=== PATIENT | female | born 1975 | race Caucasian/White ===

== ENCOUNTER 2019-01-16 21:51 | Observation (INO) ==
[2019-01-16] MEDS ORDERED: PIPERACILLIN/TAZOBACTAM 4.5 GM/120 ML BAG IV ONE (22:08)
[2019-01-16] MEDS ORDERED: PIPERACILL/TAZOBAC CONSULT ACTIVE PRN (22:08)
[2019-01-16] MEDS ORDERED: VANCOMYCIN CONSULT ACTIVE PRN (22:08)
[2019-01-16] MEDS ORDERED: VANCOMYCIN HCL 2,000 MG in SODIUM CHLORIDE 0.9% 500 ML IV ONE (22:08)
[2019-01-16] MEDS ORDERED: METOCLOPRAMIDE HCL INJ 5 MG/ML 2 ML VIAL IV STA (22:09)
[2019-01-16] MEDS ORDERED: SODIUM CHLORIDE 0.9% 1000ML 250 ML IV ONE (22:09)
[2019-01-16 22:44] LABS: Basophils # (auto) 0.03 K/uL (0-0.2); Basophils % (auto) 0.3 %; Eosinophils # (auto) 0.11 K/uL (0-0.5); Eosinophils % (auto) 1.3 %; Hematocrit (blood only) 29.8 % (37-47); Immature Granulocytes # (auto) 0.02 K/uL (0.00-0.02); Immature Granulocytes % (auto) 0.2 %; Lymphocytes # (auto) 1.38 K/uL (1.2-3.4); Lymphocytes % (auto) 15.8 %; Mean Corpuscular Hgb Conc 33.6 g/dL (32-36); Mean Corpuscular Volume 91.1 fL (80-100); Mean Platelet Volume 8.1 fL (7.4-10.4); Monocytes # (auto) 0.43 K/uL (0.11-0.59); Monocytes % (auto) 4.9 %; Neutrophils # (auto) 6.76 K/uL (1.4-6.5); Neutrophils % (auto) 77.5 %; Platelet Count 436 K/uL (130-400); RDW Coefficient of Variation 16.6 % (11.5-14.5); Red Blood Count 3.27 M/uL (4.2-5.4); White Blood Count 8.73 K/uL (4.8-10.8)
[2019-01-16 22:46] LABS: Base Excess VBG 2.4 mEq/L; HCO3 VBG 26 mmol/L; Oxygen Saturation VBG 84.5 %; PCO2 VBG 37 mmHg (38-50); PO2 VBG 50 mmHg; pH VBG 7.47 (7.36-7.41)
[2019-01-16 22:55] LABS: INR 2.5 (0.9-1.1); Partial Thromboplastin Time 27.4 Seconds (21.0-31.0); Prothrombin Time 24.1 Seconds (9.0-12.0)
[2019-01-16 23:04] LABS: Alanine Aminotransferase 15 U/L (12-78); Albumin Level 3.4 gm/dl (3.4-5.0); Aspartate Aminotransferase 17 U/L (15-37); BUN Creatinine Ratio 9.9 (10-20); Blood Urea Nitrogen 37 mg/dl (7-18); Calcium 9.9 mg/dl (8.5-10.1); Carbon Dioxide 25 mmol/L (21-32); Chloride 104 mmol/L (98-107); Creatinine Clr Calc Pharmacy 20.5 ml/min; Est GFR (African American) 16.6; Est GFR (Non-African American) 14.3; Glucose 122 mg/dl (70-99); Potassium 3.8 mmol/L (3.5-5.1); Sodium 141 mmol/L (136-145)
[2019-01-16 23:08] LABS: Albumin Globulin Ratio 0.7 (0.9-2); Alkaline Phosphatase 107 U/L (45-117); Bilirubin,Total 0.5 mg/dl (0.2-1); Globulin 4.9 gm/dl (2.5-4.0); Total Protein 8.3 gm/dl (6.4-8.2); Troponin I < 0.015 ng/ml (0-0.045)
[2019-01-16] MEDS ORDERED: FUROSEMIDE 40 MG/4 ML VIAL IV STA (23:41)
[2019-01-16] MEDS ORDERED: METOPROLOL TARTRATE 1 MG/ML VIAL IV STA (23:41)
[2019-01-17 00:09] LABS: Influenza A virus by PCR Neg for Influ A (Neg); Influenza B virus by PCR Neg for Influ B (Neg)
[2019-01-17] MEDS ORDERED: LORazepam 1 MG/2 ML VIAL IV STA (00:52)
[2019-01-17 00:57] LABS: Appearance Urine Clear (Clear); Bacteria Urine Automated Negative (Negative); Bilirubin Urine Negative (Negative); Color Urine Yellow; Epithelial Cell Urine Auto 20-30 /lpf (0-5); Glucose Urine UA Trace (Negative); Ketones Urine Trace (Negative); Leukocyte Esterase Urine Negative (Negative); Nitrite Urine Negative (Negative); Specific Gravity Urine 1.012 (1.000-1.030); Urobilinogen Urine Negative (Negative)
[2019-01-17 01:05] LABS: Protein Urine 1+ (Negative)
[2019-01-17] MEDS ORDERED: AMLODIPINE BESYLATE 5 MG TAB PO SCH (01:25)
--- NOTE | 2019-01-17 01:30 | Emergency Department Note ---
History of Present Illness General Chief complaint: Fever Stated complaint: FEVER, NAUSEA, VOMITING, PORT FAILURE History of Present Illness Maximum Pain Intensity: 3 This 43-year-old presents to the ER complaining of nausea, vomiting, fever Location: Generalized Quality: Nausea Severity: Moderate Duration: Today Timing: Today Context: Patient developed a fever and was sent in from [facility] Modifying factors: better with nothing; worse with nothing Patient is on dialysis for end-stage renal disease. They try to access her PermCath and dialysis was not successful. [facility]. Patient was discharged from [facility] on Wednesday after having fasciotomy to the right lower leg from supposedly plaque buildup in the vein. 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 She had a recent heart attack. Patient states she was noncompliant with her medications that caused her medical problems currently. Patient denies chest pain, dyspnea, abdominal pain, diarrhea, cough, congestion. She still makes urine. No recent antibiotics. She quit smoking 1 month ago. No drug use. Home Medications Home Medications Medication Instructions Recorded Confirmed Type amlodipine 10 mg PO DAILY 01/16/19 01/16/19 History docusate sodium [Colace] 100 mg PO BID 01/16/19 01/17/19 History escitalopram oxalate 20 mg PO DAILY 01/16/19 01/16/19 History insulin aspart U-100 3 unit SUBCUT QDL 01/16/19 01/17/19 History insulin glargine 12 unit SUBCUT HS 01/16/19 01/16/19 History magnesium hydroxide [Milk of 30 ml PO DAILY PRN 01/16/19 01/16/19 History Magnesia] metoprolol tartrate 100 mg PO Q12 01/16/19 01/17/19 History nystatin 1 applic TOPICAL BID 01/16/19 01/16/19 History polyethylene glycol 3350 [Miralax] 17 g PO QDL PRN 01/16/19 01/17/19 History sennosides-docusate sodium 1 tab PO QDL PRN 01/16/19 01/17/19 History [Senokot-S] acetaminophen 650 mg PO Q4 PRN 01/17/19 01/17/19 History atorvastatin 40 mg PO DAILY 01/17/19 01/17/19 History baclofen 5 mg PO TID PRN 01/17/19 01/17/19 History darbepoetin santiago in polysorbat 60 mcg SUBCUT WK 01/17/19 01/17/19 History enoxaparin 30 mg SUBCUT DAILY 01/17/19 01/17/19 History glipizide 5 mg PO BIDM 01/17/19 01/17/19 History insulin aspart U-100 5 unit SUBCUT BIDM 01/17/19 01/17/19 History metformin 500 mg PO BIDM 01/17/19 01/17/19 History ondansetron 4 mg PO Q4 PRN 01/17/19 01/17/19 History oxycodone 5 mg PO Q4 PRN 01/17/19 01/17/19 History oxycodone 10 mg PO Q4 PRN 01/17/19 01/17/19 History pantoprazole 40 mg PO DAILY 01/17/19 01/17/19 History prochlorperazine maleate 5 mg PO TID PRN 01/17/19 01/17/19 History warfarin [Coumadin] 5 mg PO QPM 01/17/19 01/17/19 History Allergies Allergy/AdvReac Type Severity Reaction Status Date / Time lisinopril Allergy Hives Verified 01/17/19 00:21 Past Med/Surg History Medical History Diabetes ESRD (end stage renal disease) High blood pressure Social History Preferred Language: [place] Feels Safe at Home: Yes Smoking Status: Former smoker Review of Systems All systems reviewed & are unremarkable except as noted in HPI & below Physical Exam Vital Signs Vital Signs - 24 hr 01/16/19 21:55 01/16/19 23:33 01/16/19 23:50 Temperature 37.3 C Temperature Source Oral Sepsis Recent Fever Within 48 Hours Yes Sepsis New/Unexplained Change in Mental Status No Sepsis Action Taken by Nursing Physician Notified Pulse Rate 113 H 106 H Pulse Rate [Apical] 107 H Pulse Rhythm Regular Pulse Strength Normal Respiratory Rate 22 18 Respiratory Effort / Characteristics Non-Labored Spontaneous Non-Labored Spontaneous Respiratory Depth Normal Normal Respiratory Pattern Regular Regular Blood Pressure 192/104 H 214/110 H Blood Pressure [Right Arm] 214/110 H Blood Pressure Mean 133 Blood Pressure Mean [Right Arm] 144 Blood Pressure Position Sitting Blood Pressure Position [Right Arm] Lying Pulse Oximetry 95 97 Oxygen Delivery Method Room Air Room Air 01/16/19 23:56 01/17/19 00:30 01/17/19 00:45 Temperature Temperature Source Sepsis Recent Fever Within 48 Hours Sepsis New/Unexplained Change in Mental Status Sepsis Action Taken by Nursing Pulse Rate Pulse Rate [Apical] 96 H 99 H 105 H Pulse Rhythm Pulse Strength Respiratory Rate 18 18 18 Respiratory Effort / Characteristics Non-Labored Spontaneous Non-Labored Spontaneous Non-Labored Spontaneous Respiratory Depth Normal Normal Normal Respiratory Pattern Regular Regular Regular Blood Pressure Blood Pressure [Right Arm] 198/103 H 197/114 H 182/102 H Blood Pressure Mean Blood Pressure Mean [Right Arm] 134 141 128 Blood Pressure Position Blood Pressure Position [Right Arm] Lying Lying Lying Pulse Oximetry 94 94 97 Oxygen Delivery Method Room Air Room Air Room Air 01/17/19 00:46 01/17/19 01:00 Temperature Temperature Source Sepsis Recent Fever Within 48 Hours Sepsis New/Unexplained Change in Mental Status Sepsis Action Taken by Nursing Pulse Rate Pulse Rate [Apical] 111 H 100 H Pulse Rhythm Pulse Strength Respiratory Rate 18 18 Respiratory Effort / Characteristics Non-Labored Spontaneous Non-Labored Spontaneous Respiratory Depth Normal Normal Respiratory Pattern Regular Regular Blood Pressure Blood Pressure [Right Arm] 182/102 H 166/92 H Blood Pressure Mean Blood Pressure Mean [Right Arm] 128 116 Blood Pressure Position Blood Pressure Position [Right Arm] Sitting Sitting Pulse Oximetry 93 93 Oxygen Delivery Method Room Air Room Air VITALS: Vitals are noted on the nurse's note and reviewed by myself. Vital signs hypertensive. GENERAL: Pleasant female vomiting, in no acute distress, nondiaphoretic, well- developed well-nourished. SKIN: Stage I pressure ulcer to the sacrum, the rest of the skin was without rashes, erythema, edema, or bruising. There is no tenting of the skin. Capillary reflex less than 2 seconds. HEAD: Normocephalic atraumatic. EARS: External auditory canals clear, tympanic membranes pearly dueñas without erythema or effusion bilaterally. EYES: Pupils equal round and reactive to light and accommodation. Conjunctivae without injection, sclerae without icterus. Extraocular movements intact. NOSE: Patent, turbinates without inflammation or discharge. No sinus tenderness. MOUTH: Mucous membranes dry. Pharynx without erythema or exudate. Uvula midline. Airway patent. Tongue does not deviate. NECK: Supple without nuchal rigidity. No lymphadenopathy. No thyromegaly. Cervical spine is nontender. No JVD. HEART: Regular rate and rhythm LUNGS: Clear to auscultation bilaterally without wheezes, rales or rhonchi. No retractions or accessory muscle use. ABDOMEN: Positive bowel sounds x 4. Normal tympanic percussion. Soft, minimally tender lower abdomen, without masses or organomegaly. Grossman sign negative. No guarding or rebound tenderness. No CVA tenderness MUSCULOSKELETAL: No muscle atrophy, erythema, or edema noted. Left leg above the knee amputee without signs of infection, right lower leg with wound VAC present without signs of infection. Pedal pulse +2. NEURO: Patient was alert and oriented to person place and time. Normal sensation to light and sharp touch. No focal neurological deficits. Course Administered Medications Discontinued Medications Furosemide (Lasix) 40 mg IV NOW STA Stop: 01/16/19 23:42 Last Admin: 01/16/19 23:55 Dose: 40 mg Documented by: [id number] Piperacillin Sod/Tazobactam Sod (Zosyn) 4.5 gm in 120 mls @ 240 mls/hr IV NOW ONE Stop: 01/16/19 22:37 Last Infusion: 01/16/19 23:21 Dose: 0 mls/hr Documented by: [id number] Admin: 01/16/19 22:51 Dose: 240 mls/hr Documented by: [id number] Vancomycin HCl 2,000 mg/ (Sodium Chloride) 540 mls @ 200 mls/hr IV NOW ONE; Protocol Stop: 01/17/19 00:49 Last Admin: 01/17/19 00:17 Dose: 200 mls/hr Documented by: [id number] Sodium Chloride (Nss 1000ml) 250 mls @ 999 mls/hr IV .Q16M ONE Stop: 01/16/19 22:24 Last Infusion: 01/17/19 00:17 Dose: 0 mls/hr Documented by: [id number] Admin: 01/16/19 23:33 Dose: 999 mls/hr Documented by: [id number] Lorazepam (Ativan) 1 mg in 2 mls @ 2 mls/min IV NOW STA Stop: 01/17/19 00:53 Last Admin: 01/17/19 00:58 Dose: 2 mls/min Documented by: [id number] Metoclopramide HCl (Reglan) 10 mg IV NOW STA Stop: 01/16/19 22:10 Last Admin: 01/16/19 22:51 Dose: 10 mg Documented by: [id number] Metoprolol Tartrate (Lopressor) 5 mg IV NOW STA Stop: 01/16/19 23:42 Last Admin: 01/16/19 23:50 Dose: 5 mg Documented by: [id number] Medical Decision Making Medical Records Attestation: I reviewed the patient's medical records. Home Medications Current Medication List: was personally reviewed by me Laboratory Data Attestation: I reviewed the patient's lab results. Result diagrams: 01/16/19 22:14 01/16/19 22:14 Lab Results 01/16/19 01/16/19 01/16/19 Range/Units 22:14 22:14 22:14 WBC 8.73 (4.8-10.8) K/uL RBC 3.27 L (4.2-5.4) M/uL Hgb 10.0 L (12.0-16.0) g/dL Hct 29.8 L (37-47) % MCV 91.1 (80-100) fL MCH 30.6 (25-34) pg MCHC 33.6 (32-36) g/dL RDW Std Deviation 55.0 H (36.4-46.3) fL RDW Coeff of Lea 16.6 H (11.5-14.5) % Plt Count 436 H (130-400) K/uL MPV 8.1 (7.4-10.4) fL Immature Gran % (Auto) 0.2 % Neut % (Auto) 77.5 % Lymph % (Auto) 15.8 % [place] % (Auto) 4.9 % Eos % (Auto) 1.3 % Baso % (Auto) 0.3 % Immature Gran # (Auto) 0.02 (0.00-0.02) K/uL Neut # (Auto) 6.76 H (1.4-6.5) K/uL Lymph # (Auto) 1.38 (1.2-3.4) K/uL [place] # (Auto) 0.43 (0.11-0.59) K/uL Eos # (Auto) 0.11 (0-0.5) K/uL Baso # (Auto) 0.03 (0-0.2) K/uL PT 24.1 H (9.0-12.0) Seconds INR 2.5 H (0.9-1.1) APTT 27.4 (21.0-31.0) Seconds PTT Ratio 1.0 VBG pH (7.36-7.41) VBG pCO2 (38-50) mmHg VBG pO2 mmHg VBG HCO3 mmol/L VBG O2 Saturation % VBG Base Excess mEq/L Sodium 141 (136-145) mmol/L Potassium 3.8 (3.5-5.1) mmol/L Chloride 104 (98-107) mmol/L Carbon Dioxide 25 (21-32) mmol/L Anion Gap 12.0 H (3-11) BUN 37 H (7-18) mg/dl Creatinine 3.69 H (0.6-1.2) mg/dl Est Cr Clr Drug Dosing 20.5 ml/min Est GFR ( Amer) 16.6 Est GFR (Non-Af Amer) 14.3 BUN/Creatinine Ratio 9.9 L (10-20) Glucose 122 H (70-99) mg/dl POC Glucose (70-99) POC Lactic Acid Diaz (0.90-1.70) mmol/L Calcium 9.9 (8.5-10.1) mg/dl Total Bilirubin 0.5 (0.2-1) mg/dl AST 17 (15-37) U/L ALT 15 (12-78) U/L Alkaline Phosphatase 107 (45-117) U/L Troponin I < 0.015 (0-0.045) ng/ml Total Protein 8.3 H (6.4-8.2) gm/dl Albumin 3.4 (3.4-5.0) gm/dl Globulin 4.9 H (2.5-4.0) gm/dl Albumin/Globulin Ratio 0.7 L (0.9-2) Urine Color Urine Appearance (Clear) Urine pH (4.5-7.5) Ur Specific [place] (1.000-1.030) Urine Protein (Negative) Urine Glucose (UA) (Negative) Urine Ketones (Negative) Urine Blood (Negative) Urine Nitrite (Negative) Urine Bilirubin (Negative) Urine Urobilinogen (Negative) Ur Leukocyte Esterase (Negative) Urine WBC (Auto) (0-5) /hpf Urine RBC (Auto) (0-4) /hpf U Hyaline Cast (Auto) (0-5) /lpf U Epithel Cells (Auto) (0-5) /lpf Urine Bacteria (Auto) (Negative) Influenza Type A (PCR) (Neg) Influenza Type B (PCR) (Neg) 01/16/19 01/16/19 01/16/19 Range/Units 22:14 22:15 22:23 WBC (4.8-10.8) K/uL RBC (4.2-5.4) M/uL Hgb (12.0-16.0) g/dL Hct (37-47) % MCV (80-100) fL MCH (25-34) pg MCHC (32-36) g/dL RDW Std Deviation (36.4-46.3) fL RDW Coeff of Lea (11.5-14.5) % Plt Count (130-400) K/uL MPV (7.4-10.4) fL Immature Gran % (Auto) % Neut % (Auto) % Lymph % (Auto) % [place] % (Auto) % Eos % (Auto) % Baso % (Auto) % Immature Gran # (Auto) (0.00-0.02) K/uL Neut # (Auto) (1.4-6.5) K/uL Lymph # (Auto) (1.2-3.4) K/uL [place] # (Auto) (0.11-0.59) K/uL Eos # (Auto) (0-0.5) K/uL Baso # (Auto) (0-0.2) K/uL PT (9.0-12.0) Seconds INR (0.9-1.1) APTT (21.0-31.0) Seconds PTT Ratio VBG pH (7.36-7.41) VBG pCO2 (38-50) mmHg VBG pO2 mmHg VBG HCO3 mmol/L VBG O2 Saturation % VBG Base Excess mEq/L Sodium (136-145) mmol/L Potassium (3.5-5.1) mmol/L Chloride (98-107) mmol/L Carbon Dioxide (21-32) mmol/L Anion Gap (3-11) BUN (7-18) mg/dl Creatinine (0.6-1.2) mg/dl Est Cr Clr Drug Dosing ml/min Est GFR ( Amer) Est GFR (Non-Af Amer) BUN/Creatinine Ratio (10-20) Glucose (70-99) mg/dl POC Glucose 128 H (70-99) POC Lactic Acid Diaz 1.01 (0.90-1.70) mmol/L Calcium (8.5-10.1) mg/dl Total Bilirubin (0.2-1) mg/dl AST (15-37) U/L ALT (12-78) U/L Alkaline Phosphatase (45-117) U/L Troponin I Cancelled (0-0.045) ng/ml Total Protein (6.4-8.2) gm/dl Albumin (3.4-5.0) gm/dl Globulin (2.5-4.0) gm/dl Albumin/Globulin Ratio (0.9-2) Urine Color Urine Appearance (Clear) Urine pH (4.5-7.5) Ur Specific [place] (1.000-1.030) Urine Protein (Negative) Urine Glucose (UA) (Negative) Urine Ketones (Negative) Urine Blood (Negative) Urine Nitrite (Negative) Urine Bilirubin (Negative) Urine Urobilinogen (Negative) Ur Leukocyte Esterase (Negative) Urine WBC (Auto) (0-5) /hpf Urine RBC (Auto) (0-4) /hpf U Hyaline Cast (Auto) (0-5) /lpf U Epithel Cells (Auto) (0-5) /lpf Urine Bacteria (Auto) (Negative) Influenza Type A (PCR) (Neg) Influenza Type B (PCR) (Neg) 01/16/19 01/16/19 01/17/19 Range/Units 22:32 23:17 00:44 WBC (4.8-10.8) K/uL RBC (4.2-5.4) M/uL Hgb (12.0-16.0) g/dL Hct (37-47) % MCV (80-100) fL MCH (25-34) pg MCHC (32-36) g/dL RDW Std Deviation (36.4-46.3) fL RDW Coeff of Lea (11.5-14.5) % Plt Count (130-400) K/uL MPV (7.4-10.4) fL Immature Gran % (Auto) % Neut % (Auto) % Lymph % (Auto) % [place] % (Auto) % Eos % (Auto) % Baso % (Auto) % Immature Gran # (Auto) (0.00-0.02) K/uL Neut # (Auto) (1.4-6.5) K/uL Lymph # (Auto) (1.2-3.4) K/uL [place] # (Auto) (0.11-0.59) K/uL Eos # (Auto) (0-0.5) K/uL Baso # (Auto) (0-0.2) K/uL PT (9.0-12.0) Seconds INR (0.9-1.1) APTT (21.0-31.0) Seconds PTT Ratio VBG pH 7.47 H (7.36-7.41) VBG pCO2 37 L (38-50) mmHg VBG pO2 50 mmHg VBG HCO3 26 mmol/L VBG O2 Saturation 84.5 % VBG Base Excess 2.4 mEq/L Sodium (136-145) mmol/L Potassium (3.5-5.1) mmol/L Chloride (98-107) mmol/L Carbon Dioxide (21-32) mmol/L Anion Gap (3-11) BUN (7-18) mg/dl Creatinine (0.6-1.2) mg/dl Est Cr Clr Drug Dosing ml/min Est GFR ( Amer) Est GFR (Non-Af Amer) BUN/Creatinine Ratio (10-20) Glucose (70-99) mg/dl POC Glucose (70-99) POC Lactic Acid Diaz (0.90-1.70) mmol/L Calcium (8.5-10.1) mg/dl Total Bilirubin (0.2-1) mg/dl AST (15-37) U/L ALT (12-78) U/L Alkaline Phosphatase (45-117) U/L Troponin I (0-0.045) ng/ml Total Protein (6.4-8.2) gm/dl Albumin (3.4-5.0) gm/dl Globulin (2.5-4.0) gm/dl Albumin/Globulin Ratio (0.9-2) Urine Color Yellow Urine Appearance Clear (Clear) Urine pH 8.0 H (4.5-7.5) Ur Specific [place] 1.012 (1.000-1.030) Urine Protein 1+ H (Negative) Urine Glucose (UA) Trace H (Negative) Urine Ketones Trace H (Negative) Urine Blood Trace H (Negative) Urine Nitrite Negative (Negative) Urine Bilirubin Negative (Negative) Urine Urobilinogen Negative (Negative) Ur Leukocyte Esterase Negative (Negative) Urine WBC (Auto) 1-5 (0-5) /hpf Urine RBC (Auto) 0-4 (0-4) /hpf U Hyaline Cast (Auto) 1-5 (0-5) /lpf U Epithel Cells (Auto) 20-30 H (0-5) /lpf Urine Bacteria (Auto) Negative (Negative) Influenza Type A (PCR) Neg for Influ A (Neg) Influenza Type B (PCR) Neg for Influ B (Neg) Imaging Data Attestation: I personally reviewed and interpreted this imaging study as follows: Blood Pressure Blood Pressure Findings: Elevated blood pressure Blood Pressure Disposition: further management by hospitalist [facility] Narrative Prior records/ancillary studies reviewed. Triage Nursing notes reviewed. Additional history obtained from EMS. The patient's history was concerning for fever. Differential diagnosis: Etiologies such as viral syndrome, otitis, pharyngitis, pneumonia, influenza, meningitis, urinary tract infection, sepsis, bacteremia, as well as others were entertained. Physical examination: As above ER treatment provided: Reglan, Zosyn, vancomycin, Ativan On reassessment the patient felt better. Diagnostics interpreted by me: ECG: Normal sinus, normal intervals, T wave inversions in the anterior leads, no old EKG. Impression sinus rhythm with T wave inversions in the anterior interpreted by myself The labs revealed elevated creatinine. Negative troponin Negative urine. Negative flu. Negative lactic acid. Blood cultures pending Imaging studies: CT ABDOMEN & PELVIS Without Contrast: Impression: Wall thickening versus underdistention of the distal colon which could be seen with colitis in the appropriate clinical scenario. No evidence of acute appendicitis. Cortical defect in the left kidney likely related to prior infection or infarction. Hazy fat stranding about the kidneys. No renal or ureteral calculi. Ill-defined hypodensity in the dome the liver. This could be evaluated with liver MRI as clinically warranted. Opacities in the lower lobes may represent atelectasis. However, infection or aspiration could have a similar appearance. Clinical correlation is recommended. Trace left pleural effusion. Subcutaneous fat stranding of the bilateral flanks. This is nonspecific. Radiologist: King Hodges MD Chest x-ray with no acute consolidation, pneumothorax or free air per my interpretation Consultation: A consultation was placed with Dr. Gómez. The case was discussed and diagnostics were reviewed. The patient was evaluated in the ER for further treatment. This appears to be consistent with fever with hypertensive urgency and intractable vomiting. Medicine was consulted. They will evaluate the patient. Patient is agreeable treatment plan of admission.. Patient was given a few rounds of blood pressure medication and was still elevated. I did try to obtain the records from [place]. They only sent me over an EKG. This was unchanged from her current one. By the evaluation outlined above emergent etiologies such as otitis, pharyngitis, pneumonia, meningitis, urinary tract infection, sepsis, bacteremia, as well as others were deemed relatively unlikely. The pt informed about the findings as listed above. All questions were answered and pleased with the treatment. Case reviewed with my attending The chart was completed utilizing [employer] Speech voice recognition software. Grammatical errors, random word insertions, pronoun errors, and incomplete sentences are an occassional consequence of this system due to software limitations, ambient noise, and hardware issues. Any formal questions or concerns about the content, text, or information contained within the body of this dictation should be directly addressed to the physician video production assistant for clarification. Impression & Plan Hypertensive urgency, Intractable vomiting Discharge Plan Visit Data Chief Complaint: Fever Stated Complaint: FEVER, NAUSEA, VOMITING, PORT FAILURE ED Provider: Nelson Romero ED Midlevel Provider: Keyla Glez Discharge Problem: Hypertensive urgency, Intractable vomiting Patient Disposition: Being Evaluated by Hospitalist Condition: Fair Forms Stand Alone Forms: My [facility] [employer] Prescriptions Prescriptions: No Action amlodipine 10 mg Tablet 10 mg PO DAILY RF: 0 nystatin 100,000 unit/gram Powder 1 applic TOPICAL BID RF: 0 insulin glargine 100 unit/mL Solution 12 unit SUBCUT HS RF: 0 magnesium hydroxide [Milk of Magnesia] 400 mg/5 mL Suspension 30 ml PO DAILY PRN (Reason: Constipation) RF: 0 polyethylene glycol 3350 [Miralax] 17 gram/dose Powder 17 g PO QDL PRN (Reason: Constipation) RF: 0 metoprolol tartrate 100 mg Tablet 100 mg PO Q12 RF: 0 sennosides-docusate sodium [Senokot-S] 8.6-50 mg Tablet 1 tab PO QDL PRN (Reason: Constipation) RF: 0 docusate sodium [Colace] 100 mg Capsule 100 mg PO BID RF: 0 escitalopram oxalate 20 mg Tablet 20 mg PO DAILY RF: 0 insulin aspart U-100 100 unit/mL (3 mL) Insulin Pen 3 unit SUBCUT QDL RF: 0 atorvastatin 40 mg Tablet 40 mg PO DAILY RF: 0 metformin 500 mg Tablet 500 mg PO BIDM RF: 0 prochlorperazine maleate 5 mg Tablet 5 mg PO TID PRN (Reason: Nausea And Vomiting) RF: 0 pantoprazole 40 mg Tablet,Delayed Release (Dr/Ec) 40 mg PO DAILY RF: 0 warfarin [Coumadin] 5 mg Tablet 5 mg PO QPM RF: 0 glipizide 5 mg Tablet 5 mg PO BIDM RF: 0 oxycodone 5 mg Tablet 10 mg PO Q4 PRN (Reason: Pain (Scale Score 7-10)) RF: 0 oxycodone 5 mg Tablet 5 mg PO Q4 PRN (Reason: Pain (Scale Score 4-6)) RF: 0 insulin aspart U-100 100 unit/mL (3 mL) Insulin Pen 5 unit SUBCUT BIDM RF: 0 baclofen 5 mg Tablet 5 mg PO TID PRN (Reason: Muscle Spasm) RF: 0 ondansetron 4 mg Tablet,Disintegrating 4 mg PO Q4 PRN (Reason: Nausea And Vomiting) RF: 0 enoxaparin 30 mg/0.3 mL Syringe 30 mg SUBCUT DAILY RF: 0 acetaminophen 325 mg Tablet 650 mg PO Q4 PRN (Reason: Pain (Scale Score 1-3)) RF: 0 darbepoetin [place] in polysorbat 60 mcg/0.3 mL Syringe 60 mcg subcut WK RF: 0 Referrals Referrals: Fabian Bettencourt MD [Primary Care Provider] -
--- NOTE | 2019-01-17 02:48 | History & Physical Report ---
Date of Service January 17, 2019 Assessment & Plan (1) Hypertensive urgency: ? Secondary to constipation symptoms ? Uremia from failed dialysis attempt yesterday secondary to access issues, ESRD on HD Low-grade fever, patient not septic, no obvious source of infection for now hypercoagulable state (recurrent LE arterial/venous thromboembolism, prothrombin gene mutation) on Coumadin INR therapeutic DM 2 insulin requiring, unknown baseline control anemia, hemoglobin improved from count of 7-8 during from recent confinement past tobacco abuse OBS Medical telemetry Facilitate home BP meds, may need titration Nephrology consult RE dialysis management Cultures, hold off on antibiotics for now until definitive source found Basal insulin, ISS BG goal 1 40-1 80, check hemoglobin A1c DVT prophylaxis. Coumadin INR goal between 2 and 3 Full code Patient's requesting updates from providers. Mr.Jason Zaldivar, contact #[phone]. History of Present Illness All Chief Complaint: Fever, nausea, vomiting Primary Care Provider: Fabian Bettencourt MD History obtained from patient, family, and records. Limited history from patient secondary to lethargy. Medical history significant for hypercoagulable state (recurrent LE arterial/venous thromboembolism, prothrombin gene mutation) on Coumadin, hypertension, DM 2 insulin requiring, past tobacco abuse, ESRD, mood disorder. Patient confined at [facility] from 12/14-01/13/2019 for DKA and ischemic LLE status post AKA after stopping home meds the month prior. Patient also underwent RLE fasciotomy after tibial embolectomy during confinement. Hemodialysis (MWF) initiated during confinement. Patient subsequently discharged to [facility] rehab facility last weekend. Failed dialysis attempt yesterday due to inability to access Permacath as per records. Patient complaining of achy abdominal discomfort, constipation symptoms the last 2 days. Patient subsequently had nausea, emesis. No chest pain, no S OB, no cough. Low-grade fever noted at rehab facility. No issues with leg surgical sites as per . At the ER, SBP noted to be 210s. Patient received IV Lopressor at the ER. Currently SBP 190s. Patient received IV Vancomycin and Zosyn at the ER. 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 Allergies Allergy/AdvReac Type Severity Reaction Status Date / Time lisinopril Allergy Hives Verified 01/17/19 00:21 Home Medications Home Medications Medication Instructions Recorded Confirmed Type amlodipine 10 mg PO DAILY 01/16/19 01/16/19 History docusate sodium [Colace] 100 mg PO BID 01/16/19 01/17/19 History escitalopram oxalate 20 mg PO DAILY 01/16/19 01/16/19 History insulin aspart U-100 3 unit SUBCUT QDL 01/16/19 01/17/19 History insulin glargine 12 unit SUBCUT HS 01/16/19 01/16/19 History magnesium hydroxide [Milk of 30 ml PO DAILY PRN 01/16/19 01/16/19 History Magnesia] metoprolol tartrate 100 mg PO Q12 01/16/19 01/17/19 History nystatin 1 applic TOPICAL BID 01/16/19 01/16/19 History polyethylene glycol 3350 [Miralax] 17 g PO QDL PRN 01/16/19 01/17/19 History sennosides-docusate sodium 1 tab PO QDL PRN 01/16/19 01/17/19 History [Senokot-S] acetaminophen 650 mg PO Q4 PRN 01/17/19 01/17/19 History atorvastatin 40 mg PO DAILY 01/17/19 01/17/19 History baclofen 5 mg PO TID PRN 01/17/19 01/17/19 History darbepoetin [place] in polysorbat 60 mcg SUBCUT WK 01/17/19 01/17/19 History enoxaparin 30 mg SUBCUT DAILY 01/17/19 01/17/19 History glipizide 5 mg PO BIDM 01/17/19 01/17/19 History insulin aspart U-100 5 unit SUBCUT BIDM 01/17/19 01/17/19 History metformin 500 mg PO BIDM 01/17/19 01/17/19 History ondansetron 4 mg PO Q4 PRN 01/17/19 01/17/19 History oxycodone 5 mg PO Q4 PRN 01/17/19 01/17/19 History oxycodone 10 mg PO Q4 PRN 01/17/19 01/17/19 History pantoprazole 40 mg PO DAILY 01/17/19 01/17/19 History prochlorperazine maleate 5 mg PO TID PRN 01/17/19 01/17/19 History warfarin [Coumadin] 5 mg PO QPM 01/17/19 01/17/19 History Past Med/Surg History Medical History Diabetes ESRD (end stage renal disease) High blood pressure Social History Preferred Language: Malay Communication Ability: Effective Beliefs That Will Affect Care: None Current Living Situation: Spouse Other Information That Helps Us Care for You: No Feels Safe at Home: Yes Safety Concerns: Feels Safe At This Time Smoking Status: Former smoker Do You Dip or Chew Tobacco: No Second Hand Exposure: No Tobacco Cessation Education Requested by Patient: No Hx Alcohol Use: No Hx Substance Use: No Review of Systems Review of Systems: Could not be reliably obtained Physical Exam Physical Exam: GENERAL: Lethargic, no respiratory distress SKIN: Pallor, warm HEENT: Bespectacled, pale palpebral conjunctivae, no ptosis, dry buccal mucosa NECK : Supple, short neck, no tenderness CHEST : Decreased breath sounds, no tenderness HEART : RRR, systolic murmur ABDOMEN: Some distention, minimal hypogastric tenderness EXTREMITIES : Dressing over RLE, dressing over left AKA stump NEUROLOGIC : Lethargic, no facial asymmetry, gait and stance not assessed Results & Data Vital Signs (Past 12 Hours) Vital Signs Temp Pulse Pulse Resp BP BP Pulse Ox 01/17/19 02:30 100 H 18 163/98 H 96 01/17/19 02:00 100 H 18 185/98 H 96 01/17/19 01:30 103 H 18 157/94 H 95 01/17/19 01:00 100 H 18 166/92 H 93 01/17/19 00:46 111 H 18 182/102 H 93 01/17/19 00:45 105 H 18 182/102 H 97 01/17/19 00:30 99 H 18 197/114 H 94 01/16/19 23:56 96 H 18 198/103 H 94 01/16/19 23:50 106 H 214/110 H 01/16/19 23:33 107 H 18 214/110 H 97 01/16/19 21:55 37.3 C 113 H 22 192/104 H 95 Diagnostic Findings Laboratory Results WBC 8.73 K/uL (4.8-10.8) 01/16/19 22:14 RBC 3.27 M/uL (4.2-5.4) L 01/16/19 22:14 Hgb 10.0 g/dL (12.0-16.0) L 01/16/19 22:14 Hct 29.8 % (37-47) L 01/16/19 22:14 MCV 91.1 fL (80-100) 01/16/19 22:14 MCH 30.6 pg (25-34) 01/16/19 22:14 MCHC 33.6 g/dL (32-36) 01/16/19 22:14 RDW Std Deviation 55.0 fL (36.4-46.3) H 01/16/19 22:14 RDW Coeff of Lea 16.6 % (11.5-14.5) H 01/16/19 22:14 Plt Count 436 K/uL (130-400) H 01/16/19 22:14 MPV 8.1 fL (7.4-10.4) 01/16/19 22:14 Immature Gran % (Auto) 0.2 % 01/16/19 22:14 Neut % (Auto) 77.5 % 01/16/19 22:14 Lymph % (Auto) 15.8 % 01/16/19 22:14 [place] % (Auto) 4.9 % 01/16/19 22:14 Eos % (Auto) 1.3 % 01/16/19 22:14 Baso % (Auto) 0.3 % 01/16/19 22:14 Immature Gran # (Auto) 0.02 K/uL (0.00-0.02) 01/16/19 22:14 Neut # (Auto) 6.76 K/uL (1.4-6.5) H 01/16/19 22:14 Lymph # (Auto) 1.38 K/uL (1.2-3.4) 01/16/19 22:14 [place] # (Auto) 0.43 K/uL (0.11-0.59) 01/16/19 22:14 Eos # (Auto) 0.11 K/uL (0-0.5) 01/16/19 22:14 Baso # (Auto) 0.03 K/uL (0-0.2) 01/16/19 22:14 PT 24.1 Seconds (9.0-12.0) H 01/16/19 22:14 INR 2.5 (0.9-1.1) H 01/16/19 22:14 APTT 27.4 Seconds (21.0-31.0) 01/16/19 22:14 PTT Ratio 1.0 01/16/19 22:14 VBG pH 7.47 (7.36-7.41) H 01/16/19 22:32 VBG pCO2 37 mmHg (38-50) L 01/16/19 22:32 VBG pO2 50 mmHg 01/16/19 22:32 VBG HCO3 26 mmol/L 01/16/19 22:32 VBG O2 Saturation 84.5 % 01/16/19 22:32 VBG Base Excess 2.4 mEq/L 01/16/19 22:32 Sodium 141 mmol/L (136-145) 01/16/19 22:14 Potassium 3.8 mmol/L (3.5-5.1) 01/16/19 22:14 Chloride 104 mmol/L (98-107) 01/16/19 22:14 Carbon Dioxide 25 mmol/L (21-32) 01/16/19 22:14 Anion Gap 12.0 (3-11) H 01/16/19 22:14 BUN 37 mg/dl (7-18) H 01/16/19 22:14 Creatinine 3.69 mg/dl (0.6-1.2) H 01/16/19 22:14 Est Cr Clr Drug Dosing 20.5 ml/min 01/16/19 22:14 Est GFR ( Amer) 16.6 01/16/19 22:14 Est GFR (Non-Af Amer) 14.3 01/16/19 22:14 BUN/Creatinine Ratio 9.9 (10-20) L 01/16/19 22:14 Glucose 122 mg/dl (70-99) H 01/16/19 22:14 POC Glucose 128 (70-99) H 01/16/19 22:23 POC Lactic Acid Diaz 1.01 mmol/L (0.90-1.70) 01/16/19 22:15 Calcium 9.9 mg/dl (8.5-10.1) 01/16/19 22:14 Magnesium 2.0 mg/dl (1.8-2.4) 01/16/19 22:14 Total Bilirubin 0.5 mg/dl (0.2-1) 01/16/19 22:14 AST 17 U/L (15-37) 01/16/19 22:14 ALT 15 U/L (12-78) 01/16/19 22:14 Alkaline Phosphatase 107 U/L (45-117) 01/16/19 22:14 Troponin I < 0.015 ng/ml (0-0.045) 01/16/19 22:14 Total Protein 8.3 gm/dl (6.4-8.2) H 01/16/19 22:14 Albumin 3.4 gm/dl (3.4-5.0) 01/16/19 22:14 Globulin 4.9 gm/dl (2.5-4.0) H 01/16/19 22:14 Albumin/Globulin Ratio 0.7 (0.9-2) L 01/16/19 22:14 TSH 2.340 uIu/ml (0.300-4.500) 01/16/19 22:14 Urine Color Yellow 01/17/19 00:44 Urine Appearance Clear (Clear) 01/17/19 00:44 Urine pH 8.0 (4.5-7.5) H 01/17/19 00:44 Ur Specific [place] 1.012 (1.000-1.030) 01/17/19 00:44 Urine Protein 1+ (Negative) H 01/17/19 00:44 Urine Glucose (UA) Trace (Negative) H 01/17/19 00:44 Urine Ketones Trace (Negative) H 01/17/19 00:44 Urine Blood Trace (Negative) H 01/17/19 00:44 Urine Nitrite Negative (Negative) 01/17/19 00:44 Urine Bilirubin Negative (Negative) 01/17/19 00:44 Urine Urobilinogen Negative (Negative) 01/17/19 00:44 Ur Leukocyte Esterase Negative (Negative) 01/17/19 00:44 Urine WBC (Auto) 1-5 /hpf (0-5) 01/17/19 00:44 Urine RBC (Auto) 0-4 /hpf (0-4) 01/17/19 00:44 U Hyaline Cast (Auto) 1-5 /lpf (0-5) 01/17/19 00:44 U Epithel Cells (Auto) 20-30 /lpf (0-5) H 01/17/19 00:44 Urine Bacteria (Auto) Negative (Negative) 01/17/19 00:44 Influenza Type A (PCR) Neg for Influ A (Neg) 01/16/19 23:17 Influenza Type B (PCR) Neg for Influ B (Neg) 01/16/19 23:17 CXR as per my interpretation cardiomegaly CT head initial read no acute pathology CT abdomen pelvis initial read: Colonic wall thickening versus underdistention. No appendicitis. Cortical defect left kidney likely related to prior infection/infarction. Ill-defined hypodensity liver dome. Atelectasis. Trace left pleural effusion. Subcutaneous fat stranding bilateral flanks. EKG as per my interpretation: Rate 105, sinus tachycardia, normal axis, T wave inversion lateral leads
[2019-01-17] MEDS ORDERED: OXYCODONE HCL IR 5 MG TAB (IMMEDIATE RELEASE) PO PRN (04:03)
[2019-01-17] MEDS ORDERED: GLUCOSE 10 TABS/TUBE PO PRN (04:03)
[2019-01-17] MEDS ORDERED: GLUCOSE 40% GEL 15 GM TUBE PO PRN (04:03)
[2019-01-17] MEDS ORDERED: GLUCAGON FOR INJ 1 MG VIAL SQ PRN (04:03)
[2019-01-17] MEDS ORDERED: NITROGLYCERIN SL 0.4 MG/TAB TAB SL PRN (04:03)
[2019-01-17] MEDS ORDERED: CARBOHYDRATES FOR HYPOGLYCEMIA PO PRN (04:03)
[2019-01-17] MEDS ORDERED: POLYETHYLENE (MIRALAX) 17 GM PACK PO PRN (04:03)
[2019-01-17] MEDS ORDERED: DEXTROSE 50% 50 ML SYRINGE IV PRN (04:03)
[2019-01-17] MEDS ORDERED: LACTULOSE SYRUP 30 GM/45 ML UDP PO STA (04:03)
[2019-01-17] MEDS ORDERED: ACETAMINOPHEN 325 MG TAB PO PRN ×2 (04:03)
[2019-01-17] MEDS: PROMETHAZINE HCL 12.5 MG in SODIUM CHLORIDE 0.9% 50 ML IV PRN ×2 (04:12→10:54)
[2019-01-17] MEDS: METOPROLOL SUCC 50MG EXT REL TAB PO SCH ×2 (05:26→20:58)
[2019-01-17] MEDS: DOCUSATE SODIUM/SENNA 50/8.6MG TAB PO SCH ×2 (05:26→20:52)
[2019-01-17] MEDS: INSULIN ASPART 100 UNITS/ML 3 ML PEN SC SCH ×5 (05:27→20:53)
[2019-01-17 06:18] LABS: Basophils # (auto) 0.04 K/uL (0-0.2); Basophils % (auto) 0.5 %; Eosinophils # (auto) 0.01 K/uL (0-0.5); Eosinophils % (auto) 0.1 %; Hemoglobin 10.5 g/dL (12.0-16.0); Immature Granulocytes # (auto) 0.01 K/uL (0.00-0.02); Immature Granulocytes % (auto) 0.1 %; Lymphocytes # (auto) 1.04 K/uL (1.2-3.4); Lymphocytes % (auto) 12.1 %; Mean Corpuscular Hgb Conc 33.9 g/dL (32-36); Mean Corpuscular Volume 90.6 fL (80-100); Mean Platelet Volume 7.8 fL (7.4-10.4); Monocytes # (auto) 0.48 K/uL (0.11-0.59); Monocytes % (auto) 5.6 %; Neutrophils # (auto) 7.02 K/uL (1.4-6.5); Neutrophils % (auto) 81.6 %; Platelet Count 397 K/uL (130-400); RDW Coefficient of Variation 16.4 % (11.5-14.5); RDW Standard Deviation 54.8 fL (36.4-46.3); Red Blood Count 3.42 M/uL (4.2-5.4)
--- NOTE | 2019-01-17 06:26 | XRay Report ---
XR chest 1V portable CLINICAL HISTORY: Sepsis COMPARISON STUDY: No previous studies for comparison. FINDINGS: A dual right internal jugular catheter is in place. There is no pneumothorax or pleural eff usion. Lung volumes are mildly diminished. There is no consolidation or evidence for pulmonary edema. Mild enlargement of the cardiac silhouette is noted. IMPRESSION: 1. No acute cardiopulmonary findings. 2. Moderate enlargement of the cardiac silhouette. Electronically signed by: Jorge Bee M.D. 01/17/2019 6:25 AM
[2019-01-17 06:29] LABS: Estimated Average Glucose 128 mg/dl
[2019-01-17 06:29] LABS: INR 2.5 (0.9-1.1); Prothrombin Time 24.3 Seconds (9.0-12.0)
--- NOTE | 2019-01-17 06:31 | CT Scan Report ---
CT OF THE HEAD WITHOUT CONTRAST CLINICAL HISTORY: Dizziness, nausea and vomiting. COMPARISON STUDY: No previous studies for comparison. CT DOSE: 537.48 mGy.cm TECHNIQUE: Helical axial images of the head were obtained without IV contrast. Automated exposure con trol was utilized for the study. A dose lowering technique was utilized adhering to the principles o f ALARA. FINDINGS: No acute intracranial hemorrhage, midline shift or mass effect is present. Ventricular syst em is normal. Basilar cisterns are patent. There are no extra-axial collections. Rojas-white different iation is maintained. There are no findings to suggest acute dural sinus thrombosis or acute territor ial infarct. There is a possible 6 mm old lacunar infarct within the right internal capsule. There ar e no significant calvarial abnormalities. Trace fluid within the bilateral mastoid air cells are note d. Bilateral sphenoid sinus air-fluid levels are noted. IMPRESSION: 1. No acute intracranial findings. 2. Sphenoid sinus air-fluid levels. 3. Minimal fluid within the bilateral mastoid air cells. Electronically signed by: Jorge Bee M.D. 01/17/2019 6:30 AM
[2019-01-17] MEDS ORDERED: METOCLOPRAMIDE HCL INJ 5 MG/ML 2 ML VIAL IV PRN (06:33)
[2019-01-17 06:45] LABS: Pregnancy Test, Serum Negative (Negative)
[2019-01-17 06:57] LABS: BUN Creatinine Ratio 10.1 (10-20); Calcium 9.8 mg/dl (8.5-10.1); Creatinine Clr Calc Pharmacy 19.6 ml/min; Est GFR (African American) 16.4; Est GFR (Non-African American) 14.1; Potassium 3.6 mmol/L (3.5-5.1)
--- NOTE | 2019-01-17 07:22 | CT Scan Report ---
ABDOMEN AND PELVIS CT WITHOUT CONTRAST CT DOSE: 844.31 mGy.cm HISTORY: ESRD, mid abd pain, fever/vomiting TECHNIQUE: Multiaxial CT images of the abdomen and pelvis were performed without contrast. A dose lo wering technique was utilized adhering to the principles of ALARA. COMPARISON STUDY: None. FINDINGS: Peripheral groundglass densities within the lung bases posteriorly, left greater the right. Trace left pleural effusion. There is a catheter terminating in the right atrium which is partially visualized. No suspicious lytic or blastic osseous lesions. Bilateral flank and hip subcutaneous keshia a, left greater than right. Linear hypodensity within the right hepatic dome. This is incompletely ch aracterize on this noncontrast study but may represent scarring rather than a liver lesion. The unenh anced spleen, adrenal glands, pancreas, and gallbladder are unremarkable. There is mild bilateral per inephric fat stranding/edema. Focal cortical scarring seen at the kidneys. No renal or ureteral calcu li. No hydronephrosis. Normal bladder. The uterus and bilateral adnexa are unremarkable. Suboptimal e valuation for bowel pathology due to the lack of intravenous and oral contrast. There are few colonic diverticula. No evidence for diverticulitis. Normal appendix. IMPRESSION: 1. No definite bowel wall thickening or obstruction. 2. Normal appendix. 3. Bilateral flank subcutaneous edema. 4. Mild bilateral perinephric edema. This could be chronic. Recommend correlation with urinalysis to exclude an infectious process. 5. Nonspecific hypodensity within the right hepatic dome which may represent scarring. Follow-up live r MRI can be performed for further evaluation if clinically warranted to exclude a hepatic lesion. 6. Trace left pleural effusion. 7. Bibasilar groundglass densities may represent atelectasis or pneumonia. Electronically signed by: Gavino Nassar M.D. 01/17/2019 7:21 AM
--- NOTE | 2019-01-17 08:33 | Nephrology Consultation ---
Date of Consultation January 17, 2019 Assessment & Plan (1) Dialysis catheter clot or failure: -we do not have provider here who can exchange tunnelled dialysis catheter. needs to go to [facility] for this - after d/w Dr Hood, pt for transfer d/t this and other medical issues; provided no active infection currently, TDC exchange ok; do note that blood cxs are in process however no leukocytosis, no F Present on Admission?: Yes (2) Acute renal failure on dialysis: potassium, volume, acid base status all ok >> does not need emergent dialysis but likely to need next 24 -72 hrs -monitor for renal recovery/ avoid nephrotoxins and IV contrast unless lifesaving > note she is NOT ESRD at least not so far Present on Admission?: Yes (3) Hypertensive urgency: did not have amlodipine today and will have this given; continue current metoprolol, amlodipine doses -goal SBP next 1-2 days is 150s -will write for prn hydralazine as well -note that lisinopril in chart from [facility] and [facility] both report angioedema from lisinopril >> our allergies so updated Present on Admission?: Yes (4) Hypercoagulation syndrome: just had BLE arterial thromboses> needs lifelong anticoagulation; though on review of heme consult at [place], not clear she has formal hypercoagulable state; heme did give ok to use epo Present on Admission?: Yes History of Present Illness Reason for Consultation: Dialysis mgt in pt w/ dialysis dependent SHYANN Requesting Physician: Dr Segundo Attending Physician: Viktoriya Hood MD History of Present Illness 43 y/o F whom I'm asked to see for dialysis mgt after she was admitted overnight for hypertensive urgency and vomiting. PMH as of spring 2018 consisted of active tobacco abuse (20 pk yr hx/ 1 PPD before recent admission), HTN, prior BL DVT on coumadin, DM, HL. She was sent to [facility] from [facility] where she was admitted 01/13 for rehab after one month stay in [facility]. She presented to [place] on 12/14/18 w/ very complex clinical status: she had stopped taking all meds for a few days/weeks before presentation and came to hospital w/ n/v and severe L foot pain. 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 She underwent L AKA, R xydobxy-cmdmhqxyp-vwjhbh embolectomy, 2 fasciotomies on R leg one of which is still only partially closed/ has vac; also developed acute renal failure and started dialysis. Repeat TTE on 12/22 showed EF 65%. Limited data are available from [place]. As of 12/31 she was already on dialysis. She was seen by hematology on 12/31 and lifelong anticoagulation d/t arterial clotting and cleared for nephrology to dose/ manage epo. Her last HD was 01/13. She still voids daily. We attempted HD at [facility] rehab yesterday but catheter would not run w/ adequate blood flows. We attempted to arrange OP catheter exchange at [facility], since proceduralists at [facility] and in [place] both unavailable this week. Concern at rehab last evening however for low grade temp and emesis > and so pt admitted here; T Max here is 37.3. In ER last evening pt had a dose of zosyn and of vancomycin; however index of suspicion for active infection low. Allergies Allergy/AdvReac Type Severity Reaction Status Date / Time lisinopril Allergy ANGIOEDEMA Verified 01/17/19 17:20 Home Medications Home Medications Medication Instructions Recorded Confirmed Type amlodipine 10 mg PO DAILY 01/16/19 01/16/19 History docusate sodium [Colace] 100 mg PO BID 01/16/19 01/17/19 History escitalopram oxalate 20 mg PO DAILY 01/16/19 01/16/19 History insulin aspart U-100 3 unit SUBCUT QDL 01/16/19 01/17/19 History insulin glargine 12 unit SUBCUT HS 01/16/19 01/16/19 History magnesium hydroxide [Milk of 30 ml PO DAILY PRN 01/16/19 01/16/19 History Magnesia] metoprolol tartrate 100 mg PO Q12 01/16/19 01/17/19 History nystatin 1 applic TOPICAL BID 01/16/19 01/16/19 History polyethylene glycol 3350 [Miralax] 17 g PO QDL PRN 01/16/19 01/17/19 History sennosides-docusate sodium 1 tab PO QDL PRN 01/16/19 01/17/19 History [Senokot-S] acetaminophen 650 mg PO Q4 PRN 01/17/19 01/17/19 History atorvastatin 40 mg PO DAILY 01/17/19 01/17/19 History baclofen 5 mg PO TID PRN 01/17/19 01/17/19 History darbepoetin santiago in polysorbat 60 mcg SUBCUT WK 01/17/19 01/17/19 History enoxaparin 30 mg SUBCUT DAILY 01/17/19 01/17/19 History glipizide 5 mg PO BIDM 01/17/19 01/17/19 History insulin aspart U-100 5 unit SUBCUT BIDM 01/17/19 01/17/19 History metformin 500 mg PO BIDM 01/17/19 01/17/19 History ondansetron 4 mg PO Q4 PRN 01/17/19 01/17/19 History oxycodone 5 mg PO Q4 PRN 01/17/19 01/17/19 History oxycodone 10 mg PO Q4 PRN 01/17/19 01/17/19 History pantoprazole 40 mg PO DAILY 01/17/19 01/17/19 History prochlorperazine maleate 5 mg PO TID PRN 01/17/19 01/17/19 History warfarin [Coumadin] 5 mg PO QPM 01/17/19 01/17/19 History Patient History Medical History Diabetes ESRD (end stage renal disease) Femoropopliteal arterial thrombosis High blood pressure Hyperlipidemia Tobacco abuse Family History Father , in his 60s w/ no chronic illnesses of unknown cause No problems noted. Social History Preferred Language: Japanese Communication Ability: Effective Beliefs That Will Affect Care: None Current Living Situation: Spouse Other Information That Helps Us Care for You: No Feels Safe at Home: Yes Safety Concerns: Feels Safe At This Time Smoking Status: Former smoker Age Quit Using Tobacco: 42 packs per day: 1 Years Smoked: 20 Do You Dip or Chew Tobacco: No Second Hand Exposure: No Tobacco Cessation Education Requested by Patient: No Hx Alcohol Use: No Hx Substance Use: No Review of Systems Review of Systems: All systems reviewed & are unremarkable except as noted in HPI & below Constitutional: + fatigue and + weakness Cardiovascular: no chest pain, no dyspnea, no dyspnea on exertion, no orthopnea, no palpitations and no edema Gastrointestinal: + nausea; no early satiety, no heartburn, no vomiting and no change in stools Genitourinary: voids daily; denies new/worsening voiding concerns Musculoskeletal: no pain currently Integumentary: + wounds (L knee); no rash Neurologic: + generalized weakness and + radiating pain Psychiatric: + anxiety Physical Exam Constitutional: well developed and well nourished on RA, A& 0 x 3, uncomfortable appearing but else not distressed Eyes: EOM intact bilaterally ENMT: Ears: no external ear abnormality Nose: no external nose abnormality Mouth: + dry oral mucous membranes Neck: no nuchal rigidity Respiratory: normal respiratory effort Auscultation: + diminished lung sounds Cardiovascular: RRR, no murmur, no edema Gastrointestinal (Abdomen): Inspection/Auscultation: normal bowel sounds Percussion/Palpation: abdomen soft; abdomen nontender Musculoskeletal: Extremities: strength 5/5 throughout Skin: no rashes, warm and dry wound L lateral leg w/ vac; healing medial wound as well L leg; R AKA stump not examined/undressed Neurologic: whitfield, fluent speech, no tremor Psychiatric: Orientation: alert and oriented x 3 Speech: normal rate/rhythm/volume of speech Affect: + anxious affect Genitourinary: no rivera Results & Data Vital Signs (Past 12 Hours) Vital Signs Temp Pulse Pulse Resp BP BP Pulse Ox 01/17/19 07:39 37.4 C 97 H 16 179/70 H 95 01/17/19 06:36 105 H 165/82 H 01/17/19 04:03 110 H 22 175/89 H 96 01/17/19 03:48 105 H 18 198/110 H 94 01/17/19 03:00 100 H 18 204/117 H 95 01/17/19 02:30 100 H 18 163/98 H 96 01/17/19 02:00 100 H 18 185/98 H 96 01/17/19 01:30 103 H 18 157/94 H 95 01/17/19 01:00 100 H 18 166/92 H 93 01/17/19 00:46 111 H 18 182/102 H 93 01/17/19 00:45 105 H 18 182/102 H 97 01/17/19 00:30 99 H 18 197/114 H 94 01/16/19 23:56 96 H 18 198/103 H 94 01/16/19 23:50 106 H 214/110 H 01/16/19 23:33 107 H 18 214/110 H 97 01/16/19 21:55 37.3 C 113 H 22 192/104 H 95 Laboratory Results Abnormal lab results 01/16/19 01/16/19 01/16/19 Range/Units 22:14 22:14 22:14 RBC 3.27 L (4.2-5.4) M/uL Hgb 10.0 L (12.0-16.0) g/dL Hct 29.8 L (37-47) % RDW Std Deviation 55.0 H (36.4-46.3) fL RDW Coeff of Lea 16.6 H (11.5-14.5) % Plt Count 436 H (130-400) K/uL Neut # (Auto) 6.76 H (1.4-6.5) K/uL Lymph # (Auto) (1.2-3.4) K/uL PT 24.1 H (9.0-12.0) Seconds INR 2.5 H (0.9-1.1) VBG pH (7.36-7.41) VBG pCO2 (38-50) mmHg Anion Gap 12.0 H (3-11) BUN 37 H (7-18) mg/dl Creatinine 3.69 H (0.6-1.2) mg/dl BUN/Creatinine Ratio 9.9 L (10-20) Glucose 122 H (70-99) mg/dl POC Glucose (70-99) Hemoglobin A1c (4.5-5.6) % Ammonia (11-32) umol/L Total Protein 8.3 H (6.4-8.2) gm/dl Globulin 4.9 H (2.5-4.0) gm/dl Albumin/Globulin Ratio 0.7 L (0.9-2) Urine pH (4.5-7.5) Urine Protein (Negative) Urine Glucose (UA) (Negative) Urine Ketones (Negative) Urine Blood (Negative) U Epithel Cells (Auto) (0-5) [facility] 01/16/19 01/16/19 01/16/19 Range/Units 22:14 22:23 22:32 RBC (4.2-5.4) M/uL Hgb (12.0-16.0) g/dL Hct (37-47) % RDW Std Deviation (36.4-46.3) fL RDW Coeff of Lea (11.5-14.5) % Plt Count (130-400) K/uL Neut # (Auto) (1.4-6.5) K/uL Lymph # (Auto) (1.2-3.4) K/uL PT (9.0-12.0) Seconds INR (0.9-1.1) VBG pH 7.47 H (7.36-7.41) VBG pCO2 37 L (38-50) mmHg Anion Gap (3-11) BUN (7-18) mg/dl Creatinine (0.6-1.2) mg/dl BUN/Creatinine Ratio (10-20) Glucose (70-99) mg/dl POC Glucose 128 H (70-99) Hemoglobin A1c 6.1 H (4.5-5.6) % Ammonia (11-32) umol/L Total Protein (6.4-8.2) gm/dl Globulin (2.5-4.0) gm/dl Albumin/Globulin Ratio (0.9-2) Urine pH (4.5-7.5) Urine Protein (Negative) Urine Glucose (UA) (Negative) Urine Ketones (Negative) Urine Blood (Negative) U Epithel Cells (Auto) (0-5) [facility] 01/17/19 01/17/19 01/17/19 Range/Units 00:44 05:22 06:03 RBC 3.42 L (4.2-5.4) M/uL Hgb 10.5 L (12.0-16.0) g/dL Hct 31.0 L (37-47) % RDW Std Deviation 54.8 H (36.4-46.3) fL RDW Coeff of Lea 16.4 H (11.5-14.5) % Plt Count (130-400) K/uL Neut # (Auto) 7.02 H (1.4-6.5) K/uL Lymph # (Auto) 1.04 L (1.2-3.4) K/uL PT (9.0-12.0) Seconds INR (0.9-1.1) VBG pH (7.36-7.41) VBG pCO2 (38-50) mmHg Anion Gap (3-11) BUN (7-18) mg/dl Creatinine (0.6-1.2) mg/dl BUN/Creatinine Ratio (10-20) Glucose (70-99) mg/dl POC Glucose 231 H (70-99) Hemoglobin A1c (4.5-5.6) % Ammonia (11-32) umol/L Total Protein (6.4-8.2) gm/dl Globulin (2.5-4.0) gm/dl Albumin/Globulin Ratio (0.9-2) Urine pH 8.0 H (4.5-7.5) Urine Protein 1+ H (Negative) Urine Glucose (UA) Trace H (Negative) Urine Ketones Trace H (Negative) Urine Blood Trace H (Negative) U Epithel Cells (Auto) 20-30 H (0-5) /[facility] 01/17/19 01/17/19 01/17/19 Range/Units 06:03 06:03 06:07 RBC (4.2-5.4) M/uL Hgb (12.0-16.0) g/dL Hct (37-47) % RDW Std Deviation (36.4-46.3) fL RDW Coeff of Lea (11.5-14.5) % Plt Count (130-400) K/uL Neut # (Auto) (1.4-6.5) K/uL Lymph # (Auto) (1.2-3.4) K/uL PT 24.3 H (9.0-12.0) Seconds INR 2.5 H (0.9-1.1) VBG pH (7.36-7.41) VBG pCO2 (38-50) mmHg Anion Gap 13.0 H (3-11) BUN 38 H (7-18) mg/dl Creatinine 3.73 H (0.6-1.2) mg/dl BUN/Creatinine Ratio (10-20) Glucose 214 H (70-99) mg/dl POC Glucose (70-99) Hemoglobin A1c (4.5-5.6) % Ammonia < 10.0 L (11-32) umol/L Total Protein (6.4-8.2) gm/dl Globulin (2.5-4.0) gm/dl Albumin/Globulin Ratio (0.9-2) Urine pH (4.5-7.5) Urine Protein (Negative) Urine Glucose (UA) (Negative) Urine Ketones (Negative) Urine Blood (Negative) U Epithel Cells (Auto) (0-5) /lpf 01/17/19 01/17/19 Range/Units 07:24 11:43 RBC (4.2-5.4) M/uL Hgb (12.0-16.0) g/dL Hct (37-47) % RDW Std Deviation (36.4-46.3) fL RDW Coeff of Lea (11.5-14.5) % Plt Count (130-400) K/uL Neut # (Auto) (1.4-6.5) K/uL Lymph # (Auto) (1.2-3.4) K/uL PT (9.0-12.0) Seconds INR (0.9-1.1) VBG pH (7.36-7.41) VBG pCO2 (38-50) mmHg Anion Gap (3-11) BUN (7-18) mg/dl Creatinine (0.6-1.2) mg/dl BUN/Creatinine Ratio (10-20) Glucose (70-99) mg/dl POC Glucose 192 H 196 H (70-99) Hemoglobin A1c (4.5-5.6) % Ammonia (11-32) umol/L Total Protein (6.4-8.2) gm/dl Globulin (2.5-4.0) gm/dl Albumin/Globulin Ratio (0.9-2) Urine pH (4.5-7.5) Urine Protein (Negative) Urine Glucose (UA) (Negative) Urine Ketones (Negative) Urine Blood (Negative) U Epithel Cells (Auto) (0-5) /lpf Diagnostic Findings noncon CT abd /pelvis ABDOMEN AND PELVIS CT WITHOUT CONTRAST CT DOSE: 844.31 mGy.cm HISTORY: ESRD, mid abd pain, fever/vomiting TECHNIQUE: Multiaxial CT images of the abdomen and pelvis were performed without contrast. A dose lowering technique was utilized adhering to the principles of ALARA. COMPARISON STUDY: None. FINDINGS: Peripheral groundglass densities within the lung bases posteriorly, left greater the right. Trace left pleural effusion. There is a catheter terminating in the right atrium which is partially visualized. No suspicious lytic or blastic osseous lesions. Bilateral flank and hip subcutaneous edema, left greater than right. Linear hypodensity within the right hepatic dome. This is incompletely characterize on this noncontrast study but may represent scarring rather than a liver lesion. The unenhanced spleen, adrenal glands, pancreas, and gallbladder are unremarkable. There is mild bilateral perinephric fat stranding/edema. Focal cortical scarring seen at the kidneys. No renal or ureteral calculi. No hydronephrosis. Normal bladder. The uterus and bilateral adnexa are unremarkable. Suboptimal evaluation for bowel pathology due to the lack of intravenous and oral contrast. There are few colonic diverticula. No evidence for diverticulitis. Normal appendix. IMPRESSION: 1.No definite bowel wall thickening or obstruction. 2. Normal appendix. 3. Bilateral flank subcutaneous edema. 4. Mild bilateral perinephric edema. This could be chronic. Recommend correlation with urinalysis to exclude an infectious process. 5. Nonspecific hypodensity within the right hepatic dome which may represent scarring. Follow-up liver MRI can be performed for further evaluation if clinically warranted to exclude a hepatic lesion. 6. Trace left pleural effusion. 7. Bibasilar groundglass densities may represent atelectasis or pneumonia. head CT CT OF THE HEAD WITHOUT CONTRAST CLINICAL HISTORY: Dizziness, nausea and vomiting. COMPARISON STUDY: No previous studies for comparison. CT DOSE: 537.48 mGy.cm TECHNIQUE: Helical axial images of the head were obtained without IV contrast. Automated exposure control was utilized for the study. A dose lowering technique was utilized adhering to the principles of ALARA. FINDINGS: No acute intracranial hemorrhage, midline shift or mass effect is present. Ventricular system is normal. Basilar cisterns are patent. There are no extra-axial collections. Rojas-white differentiation is maintained. There are no findings to suggest acute dural sinus thrombosis or acute territorial infarct. There is a possible 6 mm old lacunar infarct within the right internal capsule. There are no significant calvarial abnormalities. Trace fluid within the bilateral mastoid air cells are noted. Bilateral sphenoid sinus air-fluid levels are noted. IMPRESSION: 1. No acute intracranial findings. 2. Sphenoid sinus air-fluid levels. 3. Minimal fluid within the bilateral mastoid air cells. CXR > no acute findings; moderate heart silhouette enlargement
[2019-01-17] MEDS ORDERED: ATORVASTATIN 40 MG TAB PO SCH (09:00)
[2019-01-17] MEDS ORDERED: INSULIN GLARGINE SOLOSTAR 100 UNITS/ML 3 ML PEN SQ SCH (09:00)
[2019-01-17] MEDS ORDERED: ESCITALOPRAM OXALATE 20 MG TAB PO SCH (09:00)
[2019-01-17] MEDS ORDERED: PANTOprazole 40 MG TAB PO SCH (09:00)
--- NOTE | 2019-01-17 10:28 | Discharge Summary ---
Date of Service January 17, 2019 Admission HPI Per Admitting Provider History obtained from patient, family, and records. Limited history from patient secondary to lethargy. Medical history significant for hypercoagulable state (recurrent LE arterial/venous thromboembolism, prothrombin gene mutation) on Coumadin, hypertension, DM 2 insulin requiring, past tobacco abuse, ESRD, mood disorder. Patient confined at [facility] from 12/14-01/13/2019 for DKA and ischemic LLE status post AKA after stopping home meds the month prior. Patient also underwent RLE fasciotomy after tibial embolectomy during confinement. Hemodialysis (MWF) initiated during confinement. Patient subsequently discharged to [facility] rehab facility last weekend. Failed dialysis attempt yesterday due to inability to access Permacath as per records. Patient complaining of achy abdominal discomfort, constipation symptoms the last 2 days. Patient subsequently had nausea, emesis. No chest pain, no S OB, no cough. Low-grade fever noted at rehab facility. No issues with leg surgical sites as per . At the ER, SBP noted to be 210s. Patient received IV Lopressor at the ER. Currently SBP 190s. Patient received IV Vancomycin and Zosyn at the ER. Principal Diagnosis NONFUNCTIONING TUNNELED DIALYSIS CATHETER/END-STAGE RENAL DISEASE ON DIALYSIS/SEVERE PERIPHERAL VASCULAR DISEASE/HYPERTENSIVE URGENCY SECONDARY TO MISSED DIALYSIS TREATMENT -Needs dialysis catheter exchange/patient being transferred to [facility] Discharge Exam Constitutional + ill appearing; no acute distress Eyes + anicteric sclerae ENMT Mouth: + dry oral mucous membranes Neck trachea midline, no thyromegaly Respiratory normal respiratory effort, lungs clear to auscultation Cardiovascular RRR, no murmur, no edema Gastrointestinal (Abdomen) Inspection/Auscultation: abdomen normal to inspection and normal bowel sounds; abdomen not distended Percussion/Palpation: abdomen soft; abdomen nontender Musculoskeletal Extremities: + lower extremity abnormal to inspection (Fasciotomy on right lower extremity, marko present, wound VAC present) Right and + lower leg abnormality (Status post left lower extremity BKA) Left Skin no rashes, warm and dry Neurologic PERRL, EOMI, accommodation nl, no face palsy, no dysarthria Psychiatric Orientation: alert and oriented x 3 Affect: + flat affect Discharge Data Allergies Allergy/AdvReac Type Severity Reaction Status Date / Time lisinopril Allergy Hives Verified 01/17/19 00:21 Consultations 01/17/19 02:52 ED Decision to Admit Stat 01/17/19 04:03 Consult Nephrology Routine 01/17/19 09:54 Burn CD for patient Routine Ordered Studies 01/16/19 22:07 CT abd pelvis wo con Urgent 01/17/19 01:40 CT head/brain wo con Urgent Hospital Course (1) Hypertensive urgency: Possible secondary to missed dialysis episode, Will need emergent dialysis catheter/PermCath exchange, Patient is continued with outpatient antihypertensive: Norvasc 10 mg daily, Toprol-XL 100 mg p.o. twice daily We will add p.o. hydralazine 10 mg every 8 hours as needed for blood pressure more than 160 (2) Dialysis catheter clot or failure: Recent placement of right anterior chest wall PermCath in [facility] with vascular surgery Noted to have dialysis catheter malfunction since yesterday 01/16/2019 Does not have any dialysis access at present Appreciate input from nephrology, [facility] was reached, does not have a vascular surgeon at available at this point Not safe to wait another 1 to 2 days to transfer patient to [place] when vascular surgery is back environmental attorney There is no vascular surgery on-call for [facility] for the next 2-3 weeks [facility] contacted Patient is accepted to be transferred, will have IR guided permacath exchange followed by dialysis (3) ESRD (end stage renal disease) on dialysis: Recent complicated extended hospitalization at [facility], Developed acute renal failure, Has been on dialysis for few weeks, on Wednesday schedule, right chest wall Permacath placed by vascular surgery in [facility] possible going to be a chronic dialysis patient Unable to use PermCath yesterday/Wednesday, 01/16-patient did not get dialyzed last day of dialysis was 01/13/2019 So far volume status appears to be stable, no hypoxia, orthopnea, pleural effusion noted and chest x-ray Potassium 3.6 She does have uremic symptoms, weakness fatigue, nausea /poor appetite Nephrology consulted, appreciate input, patient will need to have a functional dialysis access to be established as soon as possible for next dialysis treatment Instead of going for a temporary catheter, recommend exchange of permacath: Removal of the nonfunctional and placing a new one, by vascular versus IR There is no vascular surgery available at [facility] for the next few weeks Discussed with [facility], patient is accepted to be transferred PermCath can be exchanged via IR guidance Patient is stable to be transferred via ground ACLS today (4) Hypercoagulation syndrome: hypercoagulable state (recurrent LE arterial/venous thromboembolism, prothrombin gene mutation) prior BL DVT In her last admission in [facility] noted to have 100% occlusion of BL popliteal arteries, . She underwent BL thrombectomies, L LOWER EXTREMITY AKA, 2x fasciotomies on R leg one of which is still only partially closed/ has wound vac; Patient is continued on Coumadin INR therapeutic (5) Type 2 DM with hypertension and ESRD on dialysis: Continue insulin sliding scale (6) DVT (deep venous thrombosis): hx of recurrent lower extremity DVT, prothrombin gene mutation On chronic anticoagulation with Coumadin, INR therapeutic CODE STATUS: Full code Disposition: Patient will need IR guided PermCath exchange, to continue dialysis treatment Getting transferred to [facility] for IR procedure today Accepting physician/hospitalist Dr. Candi Castillo MD Total Time Total Time Spent Total Time Spent (In Minutes): Approximately 45 minutes Total Time Includes: Examination of the Patient, Discharge Planning, Medication Reconciliation and Communication With Other Providers Discharge Plan Discharge Items Patient Disposition: Transfer Acute Care Hospital Reason For Visit: HTN URGENCY Discharge Diagnosis: NONFUNCTIONING TUNNELED DIALYSIS CATHETER/END-STAGE RENAL DISEASE ON DIALYSIS/SEVERE PERIPHERAL VASCULAR DISEASE/HYPERTENSIVE URGENCY SECONDARY TO MISSED DIALYSIS TREATMENT -Needs dialysis catheter exchange/patient being transferred to [facility] Condition: Fair Discharge Goals: Decrease discomfort Activity: Resume your previous activity Non-emergency contact: Primary Care Provider Call non-emergency contact if: you have any medication questions Follow-up/Referrals: Fabian Bettencourt MD [Primary Care Provider] - Diet: See below Diet Comment: N.p.o. for possible procedure: Dialysis catheter exchange Addtl Provider Instructions: Patient being transferred to [facility], for nonfunctioning tunneled dialysis catheter, needs IR guided dialysis catheter exchange Accepting physician hospitalist Dr. Candi Castillo MD Prescriptions: Continued amlodipine 10 mg Tablet 10 mg PO DAILY RF: 0 nystatin 100,000 unit/gram Powder 1 applic TOPICAL BID RF: 0 insulin glargine 100 unit/mL Solution 12 unit SUBCUT HS RF: 0 magnesium hydroxide [Milk of Magnesia] 400 mg/5 mL Suspension 30 ml PO DAILY PRN (Reason: Constipation) RF: 0 polyethylene glycol 3350 [Miralax] 17 gram/dose Powder 17 g PO QDL PRN (Reason: Constipation) RF: 0 metoprolol tartrate 100 mg Tablet 100 mg PO Q12 RF: 0 sennosides-docusate sodium [Senokot-S] 8.6-50 mg Tablet 1 tab PO QDL PRN (Reason: Constipation) RF: 0 docusate sodium [Colace] 100 mg Capsule 100 mg PO BID RF: 0 escitalopram oxalate 20 mg Tablet 20 mg PO DAILY RF: 0 insulin aspart U-100 100 unit/mL (3 mL) Insulin Pen 3 unit SUBCUT QDL RF: 0 atorvastatin 40 mg Tablet 40 mg PO DAILY RF: 0 metformin 500 mg Tablet 500 mg PO BIDM RF: 0 prochlorperazine maleate 5 mg Tablet 5 mg PO TID PRN (Reason: Nausea And Vomiting) RF: 0 pantoprazole 40 mg Tablet,Delayed Release (Dr/Ec) 40 mg PO DAILY RF: 0 warfarin [Coumadin] 5 mg Tablet 5 mg PO QPM RF: 0 glipizide 5 mg Tablet 5 mg PO BIDM RF: 0 oxycodone 5 mg Tablet 10 mg PO Q4 PRN (Reason: Pain (Scale Score 7-10)) RF: 0 oxycodone 5 mg Tablet 5 mg PO Q4 PRN (Reason: Pain (Scale Score 4-6)) RF: 0 insulin aspart U-100 100 unit/mL (3 mL) Insulin Pen 5 unit SUBCUT BIDM RF: 0 baclofen 5 mg Tablet 5 mg PO TID PRN (Reason: Muscle Spasm) RF: 0 ondansetron 4 mg Tablet,Disintegrating 4 mg PO Q4 PRN (Reason: Nausea And Vomiting) RF: 0 enoxaparin 30 mg/0.3 mL Syringe 30 mg SUBCUT DAILY RF: 0 acetaminophen 325 mg Tablet 650 mg PO Q4 PRN (Reason: Pain (Scale Score 1-3)) RF: 0 darbepoetin [place] in polysorbat 60 mcg/0.3 mL Syringe 60 mcg subcut WK RF: 0 Stand-Alone Forms: [facility] Discharge Orders: Discharge Order (Routine); Ordered 01/17/19 Ordered By: Viktoriya Hood Admission Data Admit Date/Time: 01/17/19 02:52 Attending Provider: Viktoriya Hood Admit Provider: Bebo Gómez Primary Care Provider: Fabian Bettencourt. Other Providers: Bebo Gómez ; Ileana Sweeney ; Jesus Moss ; Michael Marquez I ; Debby Christianson ; Nalini Vela ; Anastacio Brown Service: Telemetry Medical
[2019-01-17] MEDS ORDERED: HydrALAZINE 10 MG TAB PO PRN (17:23)
[2019-01-17] MEDS ORDERED: LABETALOL HCL IV 5 MG/ML 20ML IV STA (19:41)
--- NOTE | 2019-01-17 20:05 | Hospitalist Progress Note ---
Date of Service January 17, 2019 Subjective Patient discussed ATTENDING ADDENDUM: Patient was accepted to be transferred to [facility], for IR guided PermCath exchange No bed available [place] [facility] [place] Called [facility], Patient was admitted in [facility] from 12/14/2018 to 01/13/2019 Case discussed with on-call hospitalist Dr. Contreras-and also with the on-call nephrology team, Patient is family to the team because of prior hospitalization They do have vascular surgery on board, Willing to accept the patient under their care , patient will be transferred to transport to hospital via ACLS ground Accepting physician: Hospitalist Dr. Sarahi Contreras Results & Data Vital Signs (Past 12 Hours) Vital Signs Temp Pulse Pulse Resp BP Pulse Ox 01/17/19 19:37 36.9 C 98 H 20 204/97 H 94 01/17/19 18:48 99 H 185/89 H 01/17/19 18:10 37 C 94 H 18 187/87 H 01/17/19 16:17 37.4 C 92 H 18 176/92 H 92 01/17/19 11:48 37.1 C 99 H 16 165/80 H 94 01/17/19 09:00 105 H
== END 2019-01-17 21:30 | disposition short-term general hospital (02) ==
LOC: ED 21:51 → 2N 21:51